=== PATIENT | female | born 1980 | race Caucasian/White ===

== ENCOUNTER 2020-12-29 16:00 | Emergency (ER) | payer BC ==
--- NOTE | 2020-12-29 16:08 | EDM.PDOC ---
ED HPI GENERAL MEDICAL PROBLEM - General Chief Complaint: Back Pain or Injury Stated Complaint: SEVERE PAIN IN CORE Time Seen by Provider: 12/29/20 16:07 Source of Information: Reports: Patient History Limitations: Reports: No Limitations - History of Present Illness INITIAL COMMENTS - FREE TEXT/NARRATIVE: HISTORY AND PHYSICAL: History of present illness: Patient is a 40-year-old female who presents to the emergency room with complaints of right anterior chest wall pain. She states she fell at the [employer] on Sunday hitting her right anterior chest. Pain was significant after accident, she was seen in [facility], had an x-ray and was told it was normal. She was given an injection of Toradol IM and script for home. Pain did not improve, she went to the chiropractor to see if she could get adjusted, but they recommended she come to the ED. Describes the pain as a "spasm" and is very tight at times. Patient denies any fever, chills, headache, change in vision, syncope or near syncope. Denies any midsternal chest pain, back pain, shortness of breath or cough. States she only has pain with movement, deep breaths or laughing. Denies any abdominal pain, nausea, vomiting, diarrhea, constipation or dysuria. Has not noted any blood in urine or stool. Patient has been eating and drinking appropriately. Review of systems: As per history of present illness and below otherwise all systems reviewed and negative. Past medical history: As per history of present illness and as reviewed below otherwise noncontributory. Surgical history: As per history of present illness and as reviewed below otherwise noncontributory. Social history: See social history for further information Family history: As per history of present illness and as reviewed below otherwise n oncontributory. Physical exam: General: Well developed and well nourished. Alert and orientated x 3. Nontoxic in appearance and in no acute distress. Vital signs are stable and have been reviewed by me. Nursing notes were reviewed. HEENT: Atraumatic, normocephalic, pupils equal and reactive bilaterally, negative for conjunctival pallor or scleral icterus, mucous membranes moist, trachea midline. No drooling or trismus noted. No meningeal signs. No hot potato voice noted. Lungs: Clear to auscultation bilaterally. No wheezes, rales, or rhonchi. Chest tenderness to right anterior/lateral chest wall. Poor air exchange, due to causing increased pain with deep breathes. Normal work of breathing, no accessory muscles used. Heart: S1S2, regular rate and rhythm without overt murmur, gallops, or rubs. No JVD. No peripheral edema Abdomen: Soft, nondistended, nontender. Normoactive bowel sounds. Negative for masses or costovertebral tenderness. Skin: Intact, warm, dry. No lesions or rashes noted. Hematologic: No petechiae or purpra. Mucosa appropriate color and normal nail bed color and refill. Extremities: Atraumatic, moves all extremities per self without difficulty or deficits, negative for cords or calf pain. Neurovascular unremarkable. Neuro: Awake, alert, oriented. Cranial nerves II through XII unremarkable. Cerebellum unremarkable. Motor and sensory unremarkable throughout. Exam nonfocal. Psychiatric: Mood and affect are appropriate. Normal thought process. Answering questions appropriately. Notes: *This patient was seen and evaluated during the 2019 SARS-CoV-2 novel jarrell navirus pandemic period. Community viral transmission is ongoing at time of this encounter and the emergency department is operating under pandemic response procedures. Patient states she did just have a chest x-ray, due to her shallow inspirations and fear of taking in deep breaths I will get an x-ray to make sure she does not have a pneumonia. Patient does appear fairly uncomfortable, she does have a ride home, will give her IM Dilaudid x1 while here. Patient did feel improvement after the medication. We did education with the son at the bedside about incentive spirometer and appropriate follow-up. I have talked with the patient about today's findings, in addition to providing specific details for plan of care. Reassessment at the time of disposition demonstrates that the patient is in no acute distress. The patient is stable for discharge, counseling was provided and we discussed in great detail signs and symptoms that would prompt them to return to the Emergency Department. M edication, follow up and supportive care measures were reviewed and discussed. Voices understanding and is agreeable to plan of care. Denies any further questions or concerns at this time. Diagnostics: CXR Therapeutics: Dilaudid Prescription: Flexeril Impression: Rib contusion, right Plan: 1. You were evaluated today on an emergent basis. Your x-ray shows no evidence of a pneumonia. Your ribs will likely be sore over the next few days to week. Sure you are not avoiding taking any deep breaths as this can cause complications. Use the incentive spirometer 4-8 deep breaths every 4-6 hours while awake. 2. You can alternate Tylenol and ibuprofen as needed for pain and fever management. Flexeril is a muscle relaxer, you can take this up to 3 times daily. It may cause slight drowsiness so do not take it while driving or needing to be functioning outside of the house. You can take this with the anti-inflammatory that was prescribed to you at the walk-in clinic. The Fox is a narcotic, you can take 1-2 tabs at nighttime. Do not combine this with any other medications such as the Flexeril as we discussed. 3. We encourage you to follow up with your primary care provider and/or recommended specialist in the next few days for re-evaluation and further care/management. 4. If your symptoms should worsen, new symptoms develop or any of the signs and symptoms we discussed should arise please return to the emergency room or call 911 (if needed). Definitive disposition and diagnosis as appropriate pending reevaluation and review of above. left ribs Pain Score (Numeric/FACES): 8 - Related Data Allergies Allergy/AdvReac Type Severity Reaction Status Date / Time No Known Allergies Allergy Verified 12/29/20 17:18 Home Meds: Home Meds Cyclobenzaprine [Flexeril] 10 mg PO TID PRN #21 tab 12/29/20 [Rx] Hydrocodone/Acetaminophen [Hydrocodone-Acetamin 5-325 mg] 1 - 2 tab PO BEDTIME PRN #10 tablet 12/29/20 [Rx] ED ROS GENERAL - Review of Systems Review Of Systems: Comprehensive ROS is negative, except as noted in HPI. ED EXAM,LOWER BACK PAIN/INJURY - Physical Exam Exam: See Below (See dictation) Course - Vital Signs Last Recorded V/S: Last Vital Signs Temp 97.2 F 12/29/20 16:08 Pulse 99 12/29/20 17:20 Resp 16 12/29/20 17:20 BP 107/80 12/29/20 17:20 Pulse Ox 95 12/29/20 17:20 - Orders/Labs/Meds Meds: Medications Discontinued Medications Generic Name Dose Route Start Last Admin Trade Name Freq PRN Reason Stop Dose Admin Hydromorphone HCl 1 mg 12/29/20 16:16 12/29/20 16:34 Hydromorphone 1 Mg/Ml Syringe IM 12/29/20 16:17 1 mg ONETIME ONE Administration Departure - Departure Time of Disposition: 17:08 Disposition: Home, Self-Care 01 Clinical Impression: Contusion of rib on right side Qualifiers: Encounter type: subsequent encounter Qualified Code(s): S20.211D - Contusion of right front wall of thorax, subsequent encounter - Discharge Information Prescriptions: Cyclobenzaprine [Flexeril] 10 mg PO TID PRN #21 tab PRN Reason: Muscle Spasm Hydrocodone/Acetaminophen [Hydrocodone-Acetamin 5-325 mg] 1 - 2 tab PO BEDTIME PRN #10 tablet PRN Reason: Pain (Severe 7-10) Instructions: Rib Contusion Referrals: PCP,None [Primary Care Provider] - Forms: ED Department Discharge Additional Instructions: The following information is given to patients seen in the emergency department who are being discharged to home. This information is to outline your options for follow-up care. We provide all patients seen in our emergency department with a follow-up referral. The need for follow-up, as well as the timing and circumstances, are variable depending upon the specifics of your emergency department visit. If you don't have a primary care physician on staff, we will provide you with a referral. We always advise you to contact your personal physician following an emergency department visit to inform them of the circumstance of the visit and for follow-up with them and/or the need for any referrals to a consulting specialist. The emergency department will also refer you to a specialist when appropriate. This referral assures that you have the opportunity for follow-up care with a specialist. All of these measure are taken in an effort to provide you with optimal care, which includes your follow-up. Under all circumstances we always encourage you to contact your private physician who remains a resource for coordinating your care. When calling for follow-up care, please make the office aware that this follow-up is from your recent emergency room visit. If for any reason you are refused follow-up, please contact the [facility] Emergency Department at and asked to speak to the emergency department charge nurse. [facility] [address] [place] [address] [facility] [address] [place] [address] Thank you for choosing the [facility] emergency department in [place] for your medical needs today. It was a pleasure caring for you. Today you were seen in the emergency department for rib injury. 1. You were evaluated today on an emergent basis. Your x-ray shows no evidence of a pneumonia. Your ribs will likely be sore over the next few days to week. Sure you are not avoiding taking any deep breaths as this can cause complications. Use the incentive spirometer 4-8 deep breaths every 4-6 hours while awake. 2. You can alternate Tylenol and ibuprofen as needed for pain and fever management. Flexeril is a muscle relaxer, you can take this up to 3 times sosa y. It may cause slight drowsiness so do not take it while driving or needing to be functioning outside of the house. You can take this with the anti- inflammatory that was prescribed to you at the walk-in clinic. The Fox is a narcotic, you can take 1-2 tabs at nighttime. Do not combine this with any other medications such as the Flexeril as we discussed. 3. We encourage you to follow up with your primary care provider and/or recommended specialist in the next few days for re-evaluation and further care/management. 4. If your symptoms should worsen, new symptoms develop or any of the signs and symptoms we discussed should arise please return to the emergency room or call 911 (if needed). Sepsis Event Note (ED) - Focused Exam Vital Signs: Vital Signs Temp Pulse Resp BP Pulse Ox 12/29/20 17:20 99 16 107/80 95 12/29/20 16:08 97.2 F 106 H 18 147/96 H 97
[2020-12-29] MEDS ORDERED: HYDROmorphone 1 MG/ML Syringe IM ONE (16:16)
--- NOTE | 2020-12-29 17:49 | CR ---
HISTORY: Rib injury. Pain. COMPARISON: None available FINDINGS: A portable erect AP view of the chest was obtained at 1652 hours. There is shallow inspiration. There is mild linear density in the lung bases, left greater than right, consistent with atelectasis. There is no sign of a pneumothorax. There is no sign of any rib abnormality to correspond to the history of pain after rib injury. The heart is normal in size. The mediastinum is normal in appearance. The osseous structures are normal in appearance for the patient`s age. IMPRESSION: Shallow inspiration with mild patchy left greater than right basilar atelectasis. No sign of any rib abnormality to correspond to the history of rib injury. Dictated by Hank Hess MD @ 12/29/2020 5:47:[address] Hank Hess @ Dec 29 2020 5:47PM
== END 2020-12-29 17:26 | disposition home or self-care (01) ==
LOC: MW.ED 16:00
DX: S20.211A Contusion of right front wall of thorax, initial encounter (principal); W18.30XA Fall on same level, unspecified, initial encounter; Y92.830 Public park as the place of occurrence of the external cause
CPT/HCPCS: 71045; 96372; 99283; J1170

== ENCOUNTER 2021-05-30 11:25 | Emergency (ER) | payer BC ==
[2021-05-30] MEDS ORDERED: Albuterol/Ipratropium 3.0-0.5 MG/3 ML Neb Soln NEB ONE (11:43)
--- NOTE | 2021-05-30 11:43 | EDM.PDOC ---
ED HPI GENERAL MEDICAL PROBLEM - General Stated Complaint: SOB Time Seen by Provider: 05/30/21 11:32 Source of Information: Reports: Patient History Limitations: Reports: No Limitations - History of Present Illness INITIAL COMMENTS - FREE TEXT/NARRATIVE: HISTORY AND PHYSICAL: History of present illness: Patient is a 41-year-old female who presents to the emergency room with complaints of left sinus pressure, sore throat, fatigue and shortness of breath x 3-5 days. Initially she had gone to the walk-in clinic and they were concerned she may need to be treated for pneumonia. They requested she come to the emergency room for evaluation. Patient has been doing [id number] remedies without any relief. Patient denies any fever, chills, headache, change in vision, syncope or near syncope. Denies any chest pain, back pain or cough. Denies any abdominal pain, nausea, vomiting, diarrhea, constipation or dysuria. Has not noted any blood in urine or stool. Patient has been eating and drinking appropriately. No recent travel or sick contacts. Review of systems: As per history of present illness and below otherwise all systems reviewed and negative. Past medical history: As per history of present illness and as reviewed below otherwise noncontributory. Surgical history: As per history of present illness and as reviewed below otherwise noncontributory. Social history: See social history for further information Family history: As per history of present illness and as reviewed below otherwise noncontributory. Physical exam: General: Well developed and well nourished 41-year-old female. Alert and orientated x 3. Nontoxic in appearance and in no acute distress. Vital signs are stable and have been reviewed by me. Nursing notes were reviewed. HEENT: Atraumatic, normocephalic, pupils equal and reactive bilaterally, negative for conjunctival pallor or scleral icterus, mucous membranes moist, TMs normal bilaterally, throat erythematous without exudate or pillar shifting, neck supple, mild lymph node tenderness bilaterally to cervical chain, trachea midline. No drooling or trismus noted. No meningeal signs. No hot potato voice noted. Lungs: Slightly diminished to auscultation bilaterally. No wheezes, rales, or rhonchi. Chest nontender. Normal work of breathing, no accessory muscles used. Heart: S1S2, regular rate and rhythm without overt murmur, gallops, or rubs. No JVD. No peripheral edema Abdomen: Soft, nondistended, nontender. Normoactive bowel sounds. Negative for masses or costovertebral tenderness. Skin: Intact, warm, dry. No lesions or rashes noted. Hematologic: No petechiae or purpra. Mucosa appropriate color and normal nail bed color and refill. Extremities: Atraumatic, moves all extremities per self without difficulty or deficits, negative for cords or calf pain. Neurovascular unremarkable. Neuro: Awake, alert, oriented. Cranial nerves II through XII unremarkable. Cerebellum unremarkable. Motor and sensory unremarkable throughout. Exam nonfoca l. Psychiatric: Mood and affect are appropriate. Normal thought process. Answering questions appropriately. Please note that the patient was seen and evaluated during the 2019 SARS-CoV-2 novel coronavirus pandemic period. Community viral transmission is ongoing at time of this encounter and the emergency department is operating under pandemic response procedures. Medical Decision Making: Patient is a 41-year-old female who presents to the emergency room with complaints of upper respiratory symptoms. Patient states she does have a sore throat and shortness of breath when she is laying flat or being physically exerted. When she was seen in the walk-in clinic they wanted her to come to the emergency room to rule out pneumonia. Lung sounds are slightly diminished although her vital signs are stable. Chest x-ray is unremarkable. No evidence of pneumonia. Patient does have COVID-19. I have talked with the patient about today's findings, in addition to providing specific details for plan of care. Reassessment at the time of disposition demonstrates that the patient is in no acute distress. The patient is stable for discharge, counseling was provided and we discussed in great d etail signs and symptoms that would prompt them to return to the Emergency Department. Medication, follow up and supportive care measures were reviewed and discussed. Voices understanding and is agreeable to plan of care. Denies any further questions or concerns at this time. Diagnostics: COVID-19/influenza, strep screening, chest x-ray Therapeutics: DuoNeb Prescription: None Impression: COVID-19 Definitive disposition and diagnosis as appropriate pending reevaluation and review of above. "i just feel tired" Pain Score (Numeric/FACES): 3 - Related Data Allergies Allergy/AdvReac Type Severity Reaction Status Date / Time amoxicillin Allergy Other Verified 05/30/21 11:32 Penicillins Allergy Other Verified 05/30/21 11:32 Home Meds: Home Meds Cyclobenzaprine [Flexeril] 10 mg PO TID PRN #21 tab 12/29/20 [Rx] Hydrocodone/Acetaminophen [Hydrocodone-Acetamin 5-325 mg] 1 - 2 tab PO BEDTIME PRN #10 tablet 12/29/20 [Rx] Past Medical History - Past Health History Medical/Surgical History: Denies Medical/Surgical History HEENT History: Reports: None Cardiovascular History: Reports: None Respiratory History: Reports: None Gastrointestinal History: Reports: None Genitourinary History: Reports: None [facility] GENERAL History: Reports: None Musculoskeletal History: Reports: None Neurological History: Reports: None Psychiatric History: Reports: None Endocrine/Metabolic History: Reports: None Hematologic History: Reports: None Immunologic History: Reports: None Oncologic (Cancer) History: Reports: None Dermatologic History: Reports: None - Infectious Disease History Infectious Disease History: Reports: None - Past Surgical History Head Surgeries/Procedures: Reports: None Social & Family History - Family History Family Medical History: No Pertinent Family History - Caffeine Use Caffeine Use: Reports: None ED ROS GENERAL - Review of Systems Review Of Systems: Comprehensive ROS is negative, except as noted in HPI. ED EXAM, GENERAL - Physical Exam Exam: See Below (See dictation) Course - Vital Signs Last Recorded V/S: Last Vital Signs Temp 96.9 F 05/30/21 11:32 Pulse 111 H 05/30/21 12:30 Resp 18 05/30/21 11:32 BP 129/83 05/30/21 12:30 Pulse Ox 94 L 05/30/21 12:30 - Orders/Labs/Meds Orders: Active Orders 24 hr Category Date Time Status RT Aerosol Therapy [RC] ASDIRECTED Care 05/30/21 11:43 Active Labs: Laboratory Tests 05/30/21 05/30/21 Range/Units 12:01 12:02 Influenza Type A RNA NEGATIVE (NEGATIVE) Influenza Type B RNA NEGATIVE (NEGATIVE) SARS-CoV-2 RNA (ANNA MARIE) POSITIVE H (NEGATIVE) Group A Strep (PCR) NOT DETECTED (NOT DETECT) Meds: Medications Discontinued Medications Generic Name Dose Route Start Last Admin Trade Name Freq PRN Reason Stop Dose Admin Albuterol/Ipratropium 3 ml 05/30/21 11:43 05/30/21 12:03 Albuterol/Ipratropium 3.0-0.5 Mg/3 Ml Neb Андрей NEB 05/30/21 11:44 3 ml ONETIME ONE Administration Departure - Departure Time of Disposition: 13:04 Disposition: Home, Self-Care 01 Clinical Impression: COVID-19 - Discharge Information Instructions: 10 Things You Can Do to Manage Your COVID-19 Symptoms at Home - [facility] (01/07/2021) Referrals: PCP,None [Primary Care Provider] - Forms: ED Department Discharge Additional Instructions: The following information is given to patients seen in the emergency department who are being discharged to home. This information is to outline your options for follow-up care. We provide all patients seen in our emergency department with a follow-up referral. The need for follow-up, as well as the timing and circumstances, are variable depending upon the specifics of your emergency department visit. If you don't have a primary care physician on staff, we will provide you with a referral. We always advise you to contact your personal physician following an emergency department visit to inform them of the circumstance of the visit and for follow-up with them and/or the need for any referrals to a consulting specialist. The emergency department will also refer you to a specialist when appropriate. This referral assures that you have the opportunity for follow-up care with a specialist. All of these measure are taken in an effort to provide you with optimal care, which includes your follow-up. Under all circumstances we always encourage you to contact your private physic bree who remains a resource for coordinating your care. When calling for follow- up care, please make the office aware that this follow-up is from your recent emergency room visit. If for any reason you are refused follow-up, please contact the [facility] Emergency Department at and asked to speak to the emergency department charge nurse. [facility] [address] [place] [id number] [facility] [address] [place] [address] Thank you for choosing the [facility] emergency department in [place] for your medical needs today. It was a pleasure caring for you. Today you were seen in the emergency department for Sore throat and chest tightness 1. Your COVID-19 screening is positive. That means you do have the coronavirus and you are considered contagious. Your vital signs and oxygen saturation are well enough that you were able to monitor your symptoms at home. Continue to monitor for trouble breathing, new confusion or inability to arouse, bluish lips or face or any of the other symptoms we discussed -if this occurs please return to the emergency room immediately. 2. Please self quarantine until cleared by [facility]. Inform any persons that you have been in contact with since you started becoming symptomatic that you have tested positive; they should be made aware and take the appropriate steps as needed. 3. You can take NyQuil during the evening to help get a restful night sleep. May alternate Tylenol and ibuprofen as needed for pain and fever management. 4. The [facility] department will be calling you and following up with you. The [place] COVID 19 Hotline phone number , They are open Sunday - Sunday 7am - 7pm. Follow up with your primary care provider for re-evaluation as directed. Sepsis Event Note (ED) - Focused Exam Vital Signs: Vital Signs Temp Pulse Resp BP Pulse Ox 05/30/21 12:30 111 H 129/83 94 L 05/30/21 11:32 96.9 F 102 H 18 125/87 94 L - My Orders Last 24 Hours: My Active Orders 05/30/21 11:43 RT Aerosol Therapy [RC] ASDIRECTED - Assessment/Plan Last 24 Hours: My Active Orders 05/30/21 11:43 RT Aerosol Therapy [RC] ASDIRECTED
--- NOTE | 2021-05-30 12:08 | CR ---
Indication: Shortness of breath Technique: Chest 1 view Comparison: December 30, 2019 Findings/Impression: Cardiovascular and mediastinum: Heart size and vasculature are normal in caliber and appearance. Mediastinum is within normal limits. Lungs and pleural space: Lungs are clear. No sign of infiltrate or mass. No sign of pleural effusion. No pneumothorax. Bones and soft tissues: No significant findings. Dictated by Candis Dwyer MD @ 05/30/2021 12:06:32 PM (Electronically Signed)
[2021-05-30 12:55] LABS: CORONAVIRUS COVID-19 NAA POSITIVE (NEGATIVE); INFLUENZA A NAA NEGATIVE (NEGATIVE); INFLUENZA B NAA NEGATIVE (NEGATIVE)
== END 2021-05-30 12:33 | disposition home or self-care (01) ==
LOC: MW.ED 11:25
DX: U07.1 COVID-19 (principal); Z88.0 Allergy status to penicillin
CPT/HCPCS: 0240U; 71045; 87651; 99285; J7620-GY

== ENCOUNTER 2021-06-03 21:45 | Emergency (ER) | payer BC ==
[2021-06-03] MEDS ORDERED: Albuterol/Ipratropium 3.0-0.5 MG/3 ML Neb Soln NEB ONE (22:13)
[2021-06-03] MEDS ORDERED: Dexamethasone 10 MG/ML SDV IM STA (22:14)
--- NOTE | 2021-06-03 22:15 | EDM.PDOC ---
ED HPI GENERAL MEDICAL PROBLEM - General Chief Complaint: Respiratory Problem Stated Complaint: SOB Time Seen by Provider: 06/03/21 21:49 Source of Information: Reports: Patient History Limitations: Reports: No Limitations - History of Present Illness INITIAL COMMENTS - FREE TEXT/NARRATIVE: Patient is a 41-year-old female with history of asthma presents today for worsening shortness of breath. Patient diagnosed with Covid he states that for the past few hours has been feeling more shortness of breath having chest tightness. Patient reports shortness of breath and cough as well as nonproductive. She denies any fever chills denies any chest pain any nausea vomiting abdominal pain. - Related Data Allergies Allergy/AdvReac Type Severity Reaction Status Date / Time amoxicillin Allergy Other Verified 05/30/21 11:32 erythromycin base Allergy Nausea and Verified 06/03/21 21:50 [From Erythrocin] Vomiting Penicillins Allergy Other Verified 05/30/21 11:32 Home Meds: Home Meds Albuterol [Proventil Neb Soln] 1 inh INH ASDIRECTED PRN 06/03/21 [History] levoFLOXacin [Levaquin] 750 mg PO DAILY 5 Days #5 tab 06/04/21 [Rx] predniSONE [Prednisone] 50 mg PO DAILY 4 Days #4 tablet 06/04/21 [Rx] Past Medical History - Past Health History Medical/Surgical History: Denies Medical/Surgical History HEENT History: Reports: None, Impaired Vision Cardiovascular History: Reports: Other (See Below) Other Cardiovascular History: SVT Respiratory History: Reports: Asthma, Other (See Below) Other Respiratory History: covid Gastrointestinal History: Reports: None Genitourinary History: Reports: None REFU[employer] WORKER History: Reports: None Musculoskeletal History: Reports: None Neurological History: Reports: None Psychiatric History: Reports: None Endocrine/Metabolic History: Reports: None Hematologic History: Reports: None Immunologic History: Reports: None Oncologic (Cancer) History: Reports: None Dermatologic History: Reports: None - Infectious Disease History Infectious Disease History: Reports: None - Past Surgical History Head Surgeries/Procedures: Reports: None Social & Family History - Family History Family Medical History: No Pertinent Family History - Tobacco Use Tobacco Use Status *Q: Never Tobacco User Second Hand Smoke Exposure: No - Caffeine Use Caffeine Use: Reports: None - Recreational Drug Use Recreational Drug Use: No ED ROS GENERAL - Review of Systems Review Of Systems: See Below Constitutional: Reports: No Symptoms HEENT: Reports: No Symptoms Respiratory: Reports: Shortness of Breath Cardiovascular: Reports: No Symptoms Endocrine: Reports: No Symptoms GI/Abdominal: Reports: No Symptoms : Reports: No Symptoms Musculoskeletal: Reports: No Symptoms Skin: Reports: No Symptoms Neurological: Reports: No Symptoms Psychiatric: Reports: No Symptoms Hematologic/Lymphatic: Reports: No Symptoms Immunologic: Reports: No Symptoms ED EXAM, GENERAL - Physical Exam Exam: See Below Exam Limited By: No Limitations General Appearance: Alert, WD/WN, No Apparent Distress Eye Exam: Bilateral Eye: EOMI Ears: Normal External Exam Throat/Mouth: Normal Inspection Head: Atraumatic Respiratory/Chest: No Respiratory Distress, Crackles, Rhonchi Cardiovascular: Normal Peripheral Pulses, Regular Rate, Rhythm GI/Abdominal: Normal Bowel Sounds, Soft, Non-Tender Back Exam: Normal Inspection Extremities: Normal Inspection, Normal Range of Motion Neurological: Alert, Oriented, Normal Cognition, Normal Gait #1 Interpretation EKG Date: 06/03/21 Time: 23:05 Rhythm: Other (sinus tach) Rate (Beats/Min): 133 ST-T: Normal Course - Vital Signs Last Recorded V/S: Last Vital Signs Temp 98.1 F 06/03/21 21:47 Pulse 68 06/03/21 23:05 Resp 20 06/03/21 23:05 BP 100/75 06/03/21 23:05 Pulse Ox 96 06/03/21 23:05 - Orders/Labs/Meds Orders: Active Orders 24 hr Category Date Time Status RT Aerosol Therapy [RC] ASDIRECTED Care 06/03/21 22:14 Active RT Aerosol Therapy [RC] ASDIRECTED Care 06/04/21 00:26 Active Labs: Laboratory Tests 06/03/21 06/03/21 06/03/21 Range/Units 21:58 22:43 22:43 WBC 5.71 (4.0-11.0) K/uL RBC 5.52 (4.30-5.90) M/uL Hgb 16.8 H (12.0-16.0) g/dL Hct 49.3 H (36.0-46.0) % MCV 89.3 (80.0-98.0) fL MCH 30.4 (27.0-32.0) pg MCHC 34.1 (31.0-37.0) g/dL RDW Std Deviation 45.4 (28.0-62.0) fl RDW Coeff of Mary 14 (11.0-15.0) % Plt Count 197 (150-400) K/uL MPV 9.60 (7.40-12.00) fL Neut % (Auto) 57.4 (48.0-80.0) % Lymph % (Auto) 34.3 (16.0-40.0) % [place] % (Auto) 8.1 (0.0-15.0) % Eos % (Auto) 0.0 (0.0-7.0) % Baso % (Auto) 0.2 (0.0-1.5) % Neut # (Auto) 3.3 (1.4-5.7) K/uL Lymph # (Auto) 2.0 (0.6-2.4) K/uL [place] # (Auto) 0.5 (0.0-0.8) K/uL Eos # (Auto) 0.0 (0.0-0.7) K/uL Baso # (Auto) 0.0 (0.0-0.1) K/uL Nucleated RBC % 0.0 /100WBC Nucleated RBCs # 0 K/uL Sodium 140 (136-145) mmol/L Potassium 4.3 (3.5-5.1) mmol/L Chloride 104 (98-107) mmol/L Carbon Dioxide 28.6 (21.0-32.0) mmol/L BUN 10 (7.0-18.0) mg/dL Creatinine 1.1 H (0.6-1.0) mg/dL Est Cr Clr Drug Dosing 63.01 mL/min Estimated GFR (MDRD) 54.7 ml/min Glucose 137 H (74-106) mg/dL Calcium 8.5 (8.5-10.1) mg/dL Total Bilirubin 0.5 (0.2-1.0) mg/dL AST 29 (15-37) IU/L ALT 36 (14-63) IU/L Alkaline Phosphatase 74 (46-116) U/L Total Protein 7.7 (6.4-8.2) g/dL Albumin 3.6 (3.4-5.0) g/dL Globulin 4.1 H (2.6-4.0) g/dL Albumin/Globulin Ratio 0.9 (0.9-1.6) SARS-CoV-2 RNA (ANNA MARIE) POSITIVE H (NEGATIVE) Meds: Medications Discontinued Medications Generic Name Dose Route Start Last Admin Trade Name Bella PRN Reason Stop Dose Admin Albuterol/Ipratropium 3 ml 06/03/21 22:13 06/03/21 22:27 Albuterol/Ipratropium 3.0-0.5 Mg/3 Ml Neb Soln NEB 06/03/21 22:14 3 ml ONETIME ONE Administration Albuterol/Ipratropium 3 ml 06/04/21 00:26 06/04/21 00:41 Albuterol/Ipratropium 3.0-0.5 Mg/3 Ml Neb Soln NEB 06/04/21 00:27 3 ml ONETIME ONE Administration Dexamethasone 10 mg 06/03/21 22:14 06/03/21 22:27 Dexamethasone 10 Mg/Ml Sdv IM 06/03/21 22:15 10 mg NOW STA Administration Sodium Chloride 1,000 mls @ 1,000 mls/hr 06/03/21 23:03 06/03/21 23:25 Normal Saline IV 06/04/21 00:02 1,000 mls/hr .Bolus ONE Administration - Re-Assessments/Exams Free Text/Narrative Re-Assessment/Exam: 06/04/21 00:51 Patient is feeling better patient will be sent home with steroids and antibiotics. Departure - Departure Time of Disposition: 00:51 Disposition: Home, Self-Care 01 Condition: Good Clinical Impression: COVID - Discharge Information *PRESCRIPTION DRUG MONITORING PROGRAM REVIEWED*: Not Applicable *COPY OF PRESCRIPTION DRUG MONITORING REPORT IN PATIENT SUNNY: Not Applicable Prescriptions: levoFLOXacin [Levaquin] 750 mg PO DAILY 5 Days #5 tab predniSONE [Prednisone] 50 mg PO DAILY 4 Days #4 tablet Instructions: 10 Things You Can Do to Manage Your COVID-19 Symptoms at Home - [facility] (01/07/2021) Forms: ED Department Discharge Additional Instructions: You are seen today for shortness of breath your symptoms are likely related to your Covid diagnosis. We recommend continue take the steroids uterine Akash Moreno as well recently on antibiotics. Please try to get rest you have any other concerning signs symptoms please follow-up with primary care physician. The following information is given to patients seen in the emergency department who are being discharged to home. This information is to outline your options for follow-up care. We provide all patients seen in our emergency department with a follow-up referral. The need for follow-up, as well as the timing and circumstances, are variable depending upon the specifics of your emergency department visit. If you don't have a primary care physician on staff, we will provide you with a referral. We always advise you to contact your personal physician following an emergency department visit to inform them of the circumstance of the visit and for follow-up with them and/or the need for any referrals to a consulting specialist. The emergency department will also refer you to a specialist when appropriate. This referral assures that you have the opportunity for follow-up care with a specialist. All of these measure are taken in an effort to provide you with optimal care, which includes your follow-up. Under all circumstances we always encourage you to contact your private physician who remains a resource for coordinating your care. When calling for follow-up care, please make the office aware that this follow-up is from your recent emergency room visit. If for any reason you are refused follow-up, please contact the [facility] Emergency Department at and asked to speak to the emergency department charge nurse. Please follow up with your primary care physician. If you do not have a primary care physician, see below: [facility] [address] [place] [id number] [facility] [address] [place] [id number] Sepsis Event Note (ED) - Focused Exam Vital Signs: Vital Signs Temp Pulse Resp BP Pulse Ox 06/03/21 23:05 68 20 100/75 96 06/03/21 21:47 98.1 F 132 H 19 149/91 H 94 L - My Orders Last 24 Hours: My Active Orders 06/03/21 22:14 RT Aerosol Therapy [RC] ASDIRECTED 06/04/21 00:26 RT Aerosol Therapy [RC] ASDIRECTED - Assessment/Plan Last 24 Hours: My Active Orders 06/03/21 22:14 RT Aerosol Therapy [RC] ASDIRECTED 06/04/21 00:26 RT Aerosol Therapy [RC] ASDIRECTED Plan: Is a 41-year-old female history of asthma presents today for worsening shortness of breath. Will obtain x-ray labs provide nebs and steroids and reassess.
--- NOTE | 2021-06-03 22:58 | CR ---
Indication: Cough. Technique: AP portable view of the chest. Comparison: December 29, 2020. Findings: The heart is normal in size. Left basilar atelectasis and/or infiltrate is identified. No pleural effusion or pneumothorax is identified. Impression: Left basilar atelectasis and/or infiltrate. Dictated by Alicia Cabrera MD @ 06/03/2021 10:57:11 PM (Electronically Signed)
[2021-06-03] MEDS ORDERED: Sodium Chloride 0.9% 1,000 ML IV ONE (23:03)
[2021-06-03 23:07] LABS: CARBON DIOXIDE,CO2 28.6 mmol/L (21.0-32.0); POTASSIUM,K 4.3 mmol/L (3.5-5.1)
[2021-06-04] MEDS ORDERED: Albuterol/Ipratropium 3.0-0.5 MG/3 ML Neb Soln NEB ONE (00:26)
== END 2021-06-04 01:11 | disposition home or self-care (01) ==
LOC: MW.ED 21:45
DX: U07.1 COVID-19 (principal); R00.0 Tachycardia, unspecified; J45.909 Unspecified asthma, uncomplicated; Z88.0 Allergy status to penicillin; Z88.1 Allergy status to other antibiotic agents; Z79.899 Other long term (current) drug therapy
CPT/HCPCS: 36415; 71045; 80053; 85025; 87635; 93005; 96372; 99285; J1100; J7030; J7620-GY; U0002

== ENCOUNTER 2023-12-26 01:26 | Emergency (ER) | payer BC ==
[2023-12-26] MEDS: Sodium Chloride 0.9% 2.5 ML Syringe FLUSH PRN (01:53)
[2023-12-26 01:59] LABS: BASOPHILS ABSOLUTE AUTO 0.05 K/uL (0.00-0.20); BASOPHILS PERCENT AUTO 0.6 % (0.0-1.0); EOSINOPHILS ABSOLUTE AUTO 0.14 K/uL (0.00-0.45); EOSINOPHILS PERCENT AUTO 1.7 % (0.0-6.0); HEMATOCRIT 45.4 % (37.0-47.0); HEMOGLOBIN 15.4 g/dL (12.0-16.0); IMMATURE GRAN ABSOLUTE AUTO 0.02 K/uL (0.00-0.05); IMMATURE GRAN PERCENT AUTO 0.2 % (0.0-0.4); LYMPHOCYTES ABSOLUTE AUTO 2.63 K/uL (1.00-4.80); LYMPHOCYTES PERCENT AUTO 32.3 % (24.0-44.0); MEAN CORPUSCULAR HEMOGLOBIN 29.3 pg (28.0-32.0); MEAN CORPUSCULAR HGB CONC 33.9 g/dL (32.0-36.0); MEAN CORPUSCULAR VOLUME 86.5 fL (83.0-99.0); MEAN PLATELET VOLUME 9.3 fL (9.4-12.3); MONOCYTES ABSOLUTE AUTO 0.66 K/uL (0.00-0.80); MONOCYTES PERCENT AUTO 8.1 % (0.0-8.0); NEUTROPHILS ABSOLUTE AUTO 4.64 K/uL (1.80-7.70); NEUTROPHILS PERCENT AUTO 57.1 % (41.0-71.0); PLATELET COUNT,PLT 314 K/uL (150-400); RED BLOOD CELL COUNT 5.25 M/uL (4.10-5.30); WHITE BLOOD CELL COUNT,WBC 8.14 K/uL (3.9-11.3)
[2023-12-26 02:01] LABS: COLOR,URINE YELLOW; GLUCOSE,URINE NEGATIVE (NEGATIVE); KETONES,URINE NEGATIVE (NEGATIVE); LEUKOCYTE ESTERASE,URINE NEGATIVE (NEGATIVE); NITRITE,URINE POSITIVE (NEGATIVE); OCCULT BLOOD,URINE SMALL (NEGATIVE); PROTEIN,URINE NEGATIVE (NEGATIVE)
[2023-12-26 02:03] LABS: APPEARANCE,URINE HAZY; BILIRUBIN,URINE SMALL (NEGATIVE)
[2023-12-26] MEDS: Sodium Chloride 0.9% 1,000 ML IV STA (02:08)
[2023-12-26] MEDS: Sodium Chloride 0.9% 10 ML Syringe FLUSH PRN (02:08)
[2023-12-26 02:11] LABS: BACTERIA,URINE FEW (NEGATIVE); EPITHELIAL CELLS,URINE FEW (NONE-FEW)
[2023-12-26 02:12] LABS: MUCUS,URINE MODERATE (NONE-MOD)
[2023-12-26 02:20] LABS: A/G RATIO 1.2 (0.9-1.6); BILIRUBIN TOTAL 0.5 mg/dL (0.2-1.0); CALCIUM 8.8 mg/dL (8.5-10.1); CARBON DIOXIDE,CO2 27.8 mmol/L (21.0-32.0); CREATININE 0.8 mg/dL (0.6-1.0); EST CRCL DRUG DOSING (CG) 84.88 mL/min; POTASSIUM,K 4.1 mmol/L (3.5-5.1); PROTEIN TOTAL,TP 7.3 g/dL (6.4-8.2)
[2023-12-26] MEDS: Ondansetron 4 MG/2 ML SDV IVPUSH ONE (02:22)
[2023-12-26] MEDS: Ketorolac 30 MG/ML SDV IVPUSH ONE ×2 (02:25→04:03)
[2023-12-26] MEDS: Iopamidol 755 MG/ML 500 ML Multipack Bottle IVPUSH STA (02:40)
[2023-12-26] MEDS: cefTRIAXone 500 MG in Sodium Chloride 0.9% 50 ML IV ONE (03:39)
[2023-12-26] MEDS: Lidocaine 4% 1 each Patch TOP PRN (06:05)
== END 2023-12-26 06:28 ==
LOC: MW.ED 01:26
DX: N20.0 Calculus of kidney (principal); N39.0 Urinary tract infection, site not specified; J45.909 Unspecified asthma, uncomplicated; Z88.8 Allergy status to other drugs, medicaments and biological substances; Z88.5 Allergy status to narcotic agent; Z88.0 Allergy status to penicillin; Z75.8 Other problems related to medical facilities and other health care
CPT/HCPCS: 36415; 74177; 80053; 81001; 81025; 83690; 85025; 87040; 96361; 96365; 96375; 96376; 99285; A9270; J0696; J1885; J2405; J3490; J7030; Q9967

== ENCOUNTER 2024-01-11 09:43 | Emergency (ER) | payer BC ==
[2024-01-11] MEDS ORDERED: Ondansetron 4 MG/2 ML SDV ONE ×2 (10:09→11:00)
[2024-01-11] MEDS ORDERED: Morphine 4 MG/ML Syringe ONE ×2 (10:10→11:00)
[2024-01-11] MEDS ORDERED: droPERidol 5 MG/2 ML SDV ONE ×2 (10:56→11:00)
[2024-01-11] MEDS ORDERED: Morphine 2 MG/ML SYRINGE ONE ×2 (11:00→12:41)
[2024-01-11] MEDS: Iopamidol 755 MG/ML 500 ML Multipack Bottle IVPUSH STA (21:00)
[2024-01-12 08:01] LABS: BASOPHILS ABSOLUTE AUTO 0.03 K/uL (0.00-0.20); BASOPHILS PERCENT AUTO 0.4 % (0.0-1.0); EOSINOPHILS ABSOLUTE AUTO 0.17 K/uL (0.00-0.45); EOSINOPHILS PERCENT AUTO 2.5 % (0.0-6.0); HEMATOCRIT 45.3 % (37.0-47.0); HEMOGLOBIN 15.4 g/dL (12.0-16.0); IMMATURE GRAN ABSOLUTE AUTO 0.02 K/uL (0.00-0.05); IMMATURE GRAN PERCENT AUTO 0.3 % (0.0-0.4); LYMPHOCYTES ABSOLUTE AUTO 1.53 K/uL (1.00-4.80); LYMPHOCYTES PERCENT AUTO 22.3 % (24.0-44.0); MEAN CORPUSCULAR HEMOGLOBIN 29.6 pg (28.0-32.0); MEAN CORPUSCULAR VOLUME 86.9 fL (83.0-99.0); MEAN PLATELET VOLUME 9.3 fL (9.4-12.3); MONOCYTES PERCENT AUTO 5.8 % (0.0-8.0); NEUTROPHILS ABSOLUTE AUTO 4.71 K/uL (1.80-7.70); NEUTROPHILS PERCENT AUTO 68.7 % (41.0-71.0); PLATELET COUNT,PLT 310 K/uL (150-400); RED BLOOD CELL COUNT 5.21 M/uL (4.10-5.30); WHITE BLOOD CELL COUNT,WBC 6.86 K/uL (3.9-11.3)
[2024-01-12 13:14] LABS: A/G RATIO 1.2 (0.9-1.6); ALANINE AMINOTRANSFERASE,ALT 39 IU/L (14-63); ALKALINE PHOSPHATASE 95 U/L (46-116); ASPARTATE AMNIOTRANSFERASE,AST 25 IU/L (15-37); BILIRUBIN TOTAL 0.6 mg/dL (0.2-1.0); BLOOD UREA NITROGEN,BUN 15 mg/dL (7.0-18.0); CARBON DIOXIDE,CO2 27.2 mmol/L (21.0-32.0); CHLORIDE,CL 103 mmol/L (98-107); CREATININE 0.9 mg/dL (0.6-1.0); GLUCOSE RANDOM 98 mg/dL (74-106); LIPASE 31 U/L (16-77); PROTEIN TOTAL,TP 7.3 g/dL (6.4-8.2); SODIUM,NA 139 mmol/L (136-145)
[2024-01-12 13:18] LABS: ESTIMATED GFR 81 mL/min (>60)
[2024-01-12 14:05] LABS: APPEARANCE,URINE SLT CLOUDY; BILIRUBIN,URINE NEGATIVE (NEGATIVE); COLOR,URINE YELLOW; GLUCOSE,URINE NEGATIVE (NEGATIVE); KETONES,URINE NEGATIVE (NEGATIVE); LEUKOCYTE ESTERASE,URINE TRACE (NEGATIVE); NITRITE,URINE POSITIVE (NEGATIVE); OCCULT BLOOD,URINE MODERATE (NEGATIVE); PH,URINE 6.5 (5.0-8.0); PROTEIN,URINE TRACE mg/dL (NEGATIVE); UROBILINOGEN,URINE 0.2 EU/dL (<2.0)
[2024-01-12 15:01] LABS: BACTERIA,URINE FEW (NEGATIVE); EPITHELIAL CELLS,URINE FEW (NONE-FEW); MUCUS,URINE LIGHT (NONE-MOD); RBC,URINE 25-30 (0-2/HPF); WBC,URINE 0-2 (0-5/HPF)
== END 2024-01-11 15:30 | disposition home or self-care (01) ==
LOC: MW.ED 09:43
DX: R10.9 Unspecified abdominal pain (principal)
CPT/HCPCS: 36415; 71045; 71275; 74176; 80053; 81001; 83605; 83690; 84484; 84703; 85025; 86850; 86900; 86901; 93005; 96361; 96374; 96375; 96376; 99284; J1790; J2270; J2405; Q9967; 99283